=== PATIENT | female | born 1980 | race Caucasian/White ===

== ENCOUNTER 2017-04-02 17:12 | Emergency (ER) | payer OTHER ==
[~2017-04-02] VITALS: Ht 160 cm; Wt 72.7 kg
[~2017-04-02 17:12] MED LIST: AMOXICILLIN500 M1 PO; ANTIFUNGAL15 G1 TP; BACTRIM,SEPT1 TABLET PO; FLEXERIL10 MG PO; KEFLEX500 MG PO; LORTAB 5-325 M1 EACH PO; NAPROSYN500 MG PO; NEURONTIN300 MG PO; PERIDEX1 ML MM; ULTRAM50 MG PO
[2017-04-02 18:39] LABS: HEMATOCRIT 40.4 % (36.0-46.0); HEMOGLOBIN 13.6 G/DL (11.9-15.5); MCH 31.6 PG (29.0-34.0); MCHC 33.7 G/DL (30.0-36.0); PLATELET COUNT 216 K/uL (156-360); RBC DIS.WIDTH-CV 12.6 % (11.8-14.6); RBC DIS.WIDTH-SD 43.6 % (39-53); WHITE BLOOD COUNT 5.6 K/uL (4.1-10.2)
[2017-04-02 19:08] LABS: CHLORIDE 102 mEq/L (99-109); POTASSIUM 4.3 mEq/L (3.7-5.4); SODIUM 138 mEq/L (136-147)
[2017-04-02 19:10] LABS: GLUCOSE 85 mg/dL (70-99)
[2017-04-02 19:14] LABS: CREATININE 0.8 mg/dL (0.6-1.3); GFR ESTIMATE (CALCULATED) > 59 mL/min/
[2017-04-02 19:15] LABS: UREA NITROGEN (BUN) 4 mg/dL (9-23)
[2017-04-02 19:34] LABS: QUANTITATIVE HCG < 4.0 MIU/ML
[2017-04-02] MEDS ORDERED: TORADOL10 MG PO (19:56)
[2017-04-02] MEDS ORDERED: FUTURO RESTORI1 EACH MC (19:56)
[2017-04-02 20:10] VITALS: BP 138/81
== END 2017-04-02 20:11 | disposition home or self-care (01) ==
LOC: EME 17:12
PROVIDERS: Physician Assistant
DX: R60.0 Localized edema (principal); F17.200 Nicotine dependence, unspecified, uncomplicated
CPT/HCPCS: 80048; 84702; 85027; 99281; 99284

== ENCOUNTER 2017-10-21 23:11 | Emergency (ER) | payer OTHER ==
[~2017-10-21] VITALS: Ht 160 cm; Wt 67.9 kg
[~2017-10-21 23:11] MED LIST changes: +FUTURO RESTORI1 EACH MC; +TORADOL10 MG PO
[2017-10-21 23:31] VITALS: BP 124/91
== END 2017-10-22 01:52 | disposition left against medical advice (07) ==
LOC: EME 23:11
DX: M54.9 Dorsalgia, unspecified (principal); R06.02 Shortness of breath; Z53.21 Procedure and treatment not carried out due to patient leaving prior to being seen by health care provider